=== PATIENT | female | born 1960 | race Caucasian/White ===

== ENCOUNTER 2018-04-28 19:36 | Emergency (ER) | payer BC, OTHER ==
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
[2018-04-28] MEDS ORDERED: Morphine VIAL* 4 MG/ML VIAL (1 ml vial) IV ONE (19:44)
[2018-04-28] MEDS ORDERED: Ondansetron INJ* 2 MG/ML VIAL IV ONE (19:45)
[2018-04-28] MEDS ORDERED: NS 0.9% 1000 ML* 1,000 ML IV ONE (19:46)
--- OUTSIDE RECORDS SUMMARY | 2018-04-28 20:20 | XMS REPORT | Continuity of Care Document ---
:1960 External Reference #:[id number] Author Name Joaquin Slater M.D. Address [address] [place] [address] Care Team Providers Name Role Phone Laura Weber NP Primary Care Physician Unavailable Payers Type Date Identification Numbers Payment Provider Subscriber Policy Number: [id number] [facility] Jennifer Joiner Group Number: [id number] [address] [id number] PayID: [id number] DELIA Chung [id number] Advance Directives Description No Information Available Problems Date Description Provider Status Onset: Type 2 diabetes mellitus Active Note: Spring 2017 Onset: Hypertension Active Onset: Hyperlipidemia Active Onset: Osteoarthritis Active Family History Date Family Member(s) Problem(s) Comments Father Cataract Mother No Current Problems Social History Type Date Description Comments Sex Unknown Marital Status Declined Occupation [employer] Work Status Full-Time Employment ETOH Use Occasionally consumes alcohol Tobacco Use Start: Unknown End: Patient is a former smoker Unknown Recreational Drug Use Denies Drug Use Smoking Status Reviewed: 04/05/18 Patient is a former smoker Allergies, Adverse Reactions, Alerts Date Description Reaction Status [facility] Medications Medication Date Status Form Strength Qnty SIG Indications Ordering Provider Olmesartan Active Tablets 40-25mg Take One Unknown Medoxomil/Hyd 000 Tablet By rochlorothiaz Mouth wicho Every Day Metoprolol Active Tablets ER 100mg Take One Unknown Succinate ER 000 24HR Tablet By Mouth Every Day Metformin HCL Active Tablets 500mg Take 2 Unknown 000 Tablets By Mouth In The Morning And 1 Tablet AT Night Vitamin D Active Capsules 2000Unit Unknown 000 Calcium Active Capsules 250mg 2 by mouth Unknown 000 every day Immunizations Description No Information Available Vital Signs Description No Information Available Results Description No Information Available Procedures Description No Information Available Encounters Type Date Location Provider Dx Diagnosis Office Visit 06/03/2008 Ram[facility] Messina, [place], 372.11 Conjunctivitis Simple 10:30a , umu [facility]anson Chronic Plan of Treatment 04/05/2018 - Joaquin Slater M.D.E11.9 Type 2 diabetes mellitus without complicationsComments:Smoking can increase the risk of developing or worsening any eye related disease, as well as affect your overall health. If you are a smoker, we strongly recommend that you quit.If you are not a smoker, we strongly recommend that you do not start. You have diabetes. I do not detect any changes in both of your retinas from diabetes at this time. Proper control of your diabetes is important for the health of your eyes. Changes in your eyes from diabetes can happen without symptoms, so it is important that you have your eyes examined.Follow up:1 Year Follow Up DFE You can expect to have your eyes dilated at your next visit. If Dr. Slater orders any additional testing, it may require extra time. We recommend that you bring sunglasses, as dilation drops often make you light sensitive until they wear off. We always recommend you bring someone to drive you home if you are uncomfortable driving with your eyes dilated. If you have any questions before your next visit, feel free to call our office at .h25.76 Age-related nuclear cataract, bilateralComments:You have been diagnosed with cataracts. If you are happy with your vision as it is now, then we willsee you at your next scheduled appointment. If you feel like your vision is getting worse before your scheduled appointment, please call Shyann Douglas at [phone] Vitreous degeneration, left eyeComments:You have a Posterior Vitreous Detachment in your left eye. If you have any changes in your floaters or flashing lights, please contact this office.
[2018-04-28 20:32] LABS: ABS Basophils 0.1 10^3/ul (0-0.2); ABS Eosinophils 0.3 10^3/ul (0-0.6); ABS Lymphocytes 4.1 10^3/ul (1.0-4.8); ABS Monocytes 0.8 10^3/ul (0-0.8); ABS Neutrophils 7.9 10^3/ul (1.5-7.7); ABS Nucleated RBC 0 10^3/ul; Eosinophil % 2.5 %; Hematocrit 41 % (35-47); Hemoglobin 13.7 g/dl (12.0-16.0); Lymphocyte % 30.8 %; Mean Corpuscular HGB Conc 33 g/dl (31-36); Mean Corpuscular Hemoglobin 30 pg (27-31); Mean Corpuscular Volume 91 fL (80-97); Nucleated Red Blood Cells % 0.1; Platelet Count 312 10^3/ul (150-450); Red Blood Count 4.52 10^6/ul (4.00-5.40); Red Cell Distribution Width 14 % (10.5-15); White Blood Count 13.1 10^3/ul (3.5-10.8)
[2018-04-28 20:41] LABS: INR 0.88 (0.77-1.02)
[2018-04-28 20:51] LABS: EGFR Non-African American 55.9 (>60)
[2018-04-28] MEDS ORDERED: Iodixanol* (CONTRAST) 320 MG/ML 100 ML SDV IV ONE (21:02)
[2018-04-28] MEDS ORDERED: fentaNYL* 50 MCG/ML 2 ML VIAL (100 MCG VIAL) IV SLOW PU ONE (21:50)
[2018-04-28] MEDS ORDERED: NS 0.9% 250 ML* 250 ML IV SCH (22:00)
[2018-04-28 22:33] VITALS: BP 167/82
== END 2018-04-28 22:32 | disposition short-term general hospital (02) ==
LOC: ED 19:36
DX: S42.351A Displaced comminuted fracture of shaft of humerus, right arm, initial encounter for closed fracture (principal); V43.62XA Car passenger injured in collision with other type car in traffic accident, initial encounter; Y92.481 Parking lot as the place of occurrence of the external cause; Z88.8 Allergy status to other drugs, medicaments and biological substances
CPT/HCPCS: 36415; 70450; 71045; 71260; 74177; 80053; 83690; 83735; 84484; 85025; 85610; 85730; 93005; 96361; 96374; 96375; 99283; J2270; J2405; J3010; Q9967